=== PATIENT | female | born 1990 | race Caucasian/White ===

== ENCOUNTER → 2025-03-14 | Day surgery (SDC) | payer BC ==
[~2025-03-14] MED LIST: GLUCAGON FOR INJ 1 MG VIAL ONE; HYOSCYAMINE SULFATE 0.5 MG/ML INJ ONE; KETAMINE HCL INJ 50 MG/ML 10 ML VIAL ONE; LIDOCAINE HCL 2% LOCAL INJ 5 ML SDV VIAL INJ ONE; METOCLOPRAMIDE HCL 10 MG/2ML VIAL ONE; MIDAZOLAM HCL 2 MG/2 ML VIAL ONE; MULTI-VITAMIN1 EACH PO; PROPOFOL IV EMULSION 10 MG/ML 20 ML VIAL ONE; PROPOFOL IV EMULSION 50 ML IV ONE; PROTONIX20 MG PO; SODIUM CHLORIDE 0.9% INJ 10 ML VIAL ONE
[2025-03-14] MEDS: LACTATED RINGER'S 1,000 ML ONE (13:50)
[2025-03-14 16:59] VITALS: TEMP 97.8
[2025-03-14 17:00] VITALS: BP 130/85; PULSE 89; RESP 15; O2SAT 98
[2025-03-14 18:30] LABS: CDIFF AG QUIK CHEK NEGATIVE (NEGATIVE); CDIFF TOX QUIK CHEK NEGATIVE (NEGATIVE); WBC,FECAL (FECAL LACTOFERRIN) NEGATIVE (NEGATIVE)
== END | disposition home or self-care (01) ==
LOC: OR 13:30
PROVIDERS: ATTEND Internal Medicine Gastroenterology
DX: K29.70 Gastritis, unspecified, without bleeding (principal); D12.3 Benign neoplasm of transverse colon; D12.5 Benign neoplasm of sigmoid colon; D12.8 Benign neoplasm of rectum; K31.7 Polyp of stomach and duodenum; K31.89 Other diseases of stomach and duodenum; K21.00 Gastro-esophageal reflux disease with esophagitis, without bleeding; R19.7 Diarrhea, unspecified; K44.9 Diaphragmatic hernia without obstruction or gangrene; K64.8 Other hemorrhoids; Z71.89 Other specified counseling; E66.01 Morbid (severe) obesity due to excess calories; Z68.42 Body mass index [BMI] 45.0-49.9, adult; Z71.3 Dietary counseling and surveillance
CPT/HCPCS: 43239; 43251; 45385; 81025; 83630; 83993; 87045; 87177; 87324; 87328; 87449; J1610; J1980; J2003; J2250; J2470; J2704 ×2; J2765; J7121; 45378